=== PATIENT | female | born 1945 | race Caucasian/White ===

== ENCOUNTER 2017-05-06 09:03 | Outpatient (CLI) ==
[2016-01-03 16:42] VITALS: BMI 39.5
[2017-05-06 12:39] LABS: BASOPHILS % (AUTO) 0.5 % (0.0-3.0); EOSINOPHILS # (AUTO) 0.1 K/ul (0.0-0.7); EOSINOPHILS % (AUTO) 2.5 % (0.0-7.0); HEMATOCRIT 41.5 % (37.0-47.0); HEMOGLOBIN 13.8 g/dl (12.0-16.0); IMMATURE GRANULOCYTE % (AUTO) 0.5 % (0.0-5.0); LYMPHOCYTES # (AUTO) 1.6 K/uL (0.60-3.4); MEAN CORPUSCULAR HEMOGLOBIN 30.6 pg (27.0-31.0); MEAN CORPUSCULAR HGB CONC 33.3 (31.8-35.4); MONOCYTES # (AUTO) 0.4 K/uL (0.4-2.0); MONOCYTES % (AUTO) 9.2 (0-10); NEUTROPHILS # (AUTO) 1.9 K/ul (2.0-6.9); NEUTROPHILS % (AUTO) 47.3; PLATELET COUNT 294 10^3/uL (140-440); RED BLOOD COUNT 4.51 10^6/ul (4.20-5.40); WHITE BLOOD COUNT 4.03 K/ul (4.6-10.2)
[2017-05-06 12:53] LABS: BILIRUBIN,URINE Negative (NEGATIVE); KETONES,URINE Negative (NEGATIVE); LEUKOCYTE ESTERASE ,URINE 2+ (NEGATIVE); NITRITE,URINE Negative (NEGATIVE); PH,URINE 7.5 (5-9); PROTEIN,URINE Negative (NEGATIVE); URINE, BLOOD Negative (NEGATIVE)
[2017-05-06 12:55] LABS: ALBUMIN 4.2 g/dL (3.4-5.0); ALBUMIN/GLOBULIN RATIO 1.35; ANION GAP 14.9; BILIRUBIN,TOTAL 0.71 mg/dL (0.00-1.20); BUN/CREATININE RATIO 13.08; CALCIUM 10.7 mg/dL (8.2-10.2); CHOL/HDL RATIO 3.6 (4.5-5.5); CREATININE 1.07 mg/dL (0.60-1.30); POTASSIUM 3.9 mmol/L (3.5-5.10); TOTAL PROTEIN 7.3 g/dL (5.8-8.1)
[2017-05-06 12:55] LABS: ADD URINE MICROSCOPIC YES
[2017-05-06 13:05] LABS: BACTERIA,URINE TRACE (NOT PRESENT)
== END 2017-05-06 09:04 | disposition home or self-care (01) ==
LOC: LAB 09:03
PROVIDERS: ATTEND General Practice
DX: E78.5 Hyperlipidemia, unspecified (principal); I10 Essential (primary) hypertension; Z79.899 Other long term (current) drug therapy
CPT/HCPCS: 36415; 80053; 80061; 81001; 85025; 87086

== ENCOUNTER 2017-09-05 13:05 | Outpatient (CLI) ==
[2016-01-03 16:42] VITALS: BMI 39.5
[2017-09-05 13:41] LABS: BASOPHILS % (AUTO) 0.5 % (0.0-3.0); EOSINOPHILS # (AUTO) 0.1 K/ul (0.0-0.7); EOSINOPHILS % (AUTO) 2.6 % (0.0-7.0); HEMATOCRIT 43.6 % (37.0-47.0); HEMOGLOBIN 14.4 g/dl (12.0-16.0); IMMATURE GRANULOCYTE % (AUTO) 0.3 % (0.0-5.0); LYMPHOCYTES # (AUTO) 1.5 K/uL (0.60-3.4); LYMPHOCYTES % (AUTO) 39.2 (10.0-50.0); MEAN CORPUSCULAR HEMOGLOBIN 30.4 pg (27.0-31.0); MONOCYTES # (AUTO) 0.3 K/uL (0.4-2.0); MONOCYTES % (AUTO) 8.4 (0-10); NEUTROPHILS # (AUTO) 1.9 K/ul (2.0-6.9); PLATELET COUNT 331 10^3/uL (140-440); RED BLOOD COUNT 4.74 10^6/ul (4.20-5.40); WHITE BLOOD COUNT 3.83 K/ul (4.6-10.2)
[2017-09-05 14:01] LABS: ALBUMIN 4.1 g/dL (3.4-5.0); ALBUMIN/GLOBULIN RATIO 1.11; ANION GAP 14.9; CALCIUM 11.1 mg/dL (8.2-10.2); POTASSIUM 3.9 mmol/L (3.5-5.10); TOTAL PROTEIN 7.8 g/dL (5.8-8.1)
[2017-09-05 14:04] LABS: BILIRUBIN,URINE Negative (NEGATIVE); KETONES,URINE Negative (NEGATIVE); LEUKOCYTE ESTERASE ,URINE 3+ (NEGATIVE); NITRITE,URINE Negative (NEGATIVE); PH,URINE 7.5 (5-9); PROTEIN,URINE Negative (NEGATIVE); URINE, BLOOD Trace-intact (NEGATIVE)
[2017-09-05 14:09] LABS: ADD URINE MICROSCOPIC YES
[2017-09-05 14:22] LABS: BACTERIA,URINE 1+ (NOT PRESENT)
[2017-09-05 14:37] LABS: BILIRUBIN,TOTAL 0.68 mg/dL (0.00-1.20); BUN/CREATININE RATIO 13.15; CREATININE 1.14 mg/dL (0.60-1.30)
== END 2017-09-05 13:06 | disposition home or self-care (01) ==
LOC: LAB 13:05
PROVIDERS: ATTEND General Practice
DX: E78.5 Hyperlipidemia, unspecified (principal); I10 Essential (primary) hypertension; Z79.899 Other long term (current) drug therapy
CPT/HCPCS: 36415; 80053; 80061; 81001; 85025; 87086

== ENCOUNTER 2017-09-08 08:37 | Outpatient (CLI) ==
[2016-01-03 16:42] VITALS: BMI 39.5
== END 2017-09-08 08:38 | disposition home or self-care (01) ==
LOC: LAB 08:37
PROVIDERS: ATTEND General Practice
DX: E83.52 Hypercalcemia (principal)
CPT/HCPCS: 36415; 82310; 83970

== ENCOUNTER 2017-09-23 10:04 | Outpatient (CLI) ==
[2016-01-03 16:42] VITALS: BMI 39.5
--- NOTE | 2017-09-23 11:45 | DI ---
EXAM: Chest two views HISTORY: Cough COMPARISON: 07/03/2015 TECHNIQUE: Two views of the chest were performed FINDINGS: The lungs are clear. There is no pleural effusion or pneumothorax. The heart is normal i n size. The mediastinal contour is subsegmental atelectasis and/or scarring left mid lung.. There a re no acute abnormalities of the bones. IMPRESSION: No acute cardiopulmonary process.
== END 2017-09-23 10:05 | disposition home or self-care (01) ==
LOC: RAD 10:04
PROVIDERS: ATTEND General Practice
DX: Z12.31 Encounter for screening mammogram for malignant neoplasm of breast (principal); R05 Cough
CPT/HCPCS: 77067

== ENCOUNTER 2017-10-24 08:36 | Outpatient (CLI) ==
[2016-01-03 16:42] VITALS: BMI 39.5
== END 2017-10-24 08:37 | disposition home or self-care (01) ==
LOC: LAB 08:36
PROVIDERS: ATTEND Internal Medicine Endocrinology, Diabetes & Metabolism
DX: E21.0 Primary hyperparathyroidism (principal)
CPT/HCPCS: 81050

== ENCOUNTER 2018-04-03 12:07 | Outpatient (CLI) ==
[2016-01-03 16:42] VITALS: BMI 39.5
== END 2018-04-03 12:08 | disposition home or self-care (01) ==
LOC: RHC-LAB 12:07
PROVIDERS: ATTEND General Practice
DX: E78.5 Hyperlipidemia, unspecified (principal); I10 Essential (primary) hypertension; Z79.899 Other long term (current) drug therapy
CPT/HCPCS: 36415; 80053; 80061; 81001; 85025; 87086

== ENCOUNTER 2018-07-28 09:20 | Outpatient (CLI) ==
[2016-01-03 16:42] VITALS: BMI 39.5
== END 2018-07-28 09:21 | disposition home or self-care (01) ==
LOC: RHC-LAB 09:20
PROVIDERS: ATTEND General Practice
DX: E78.5 Hyperlipidemia, unspecified (principal); I10 Essential (primary) hypertension; Z79.899 Other long term (current) drug therapy
CPT/HCPCS: 36415; 80053; 80061; 81001; 85025; 87086

== ENCOUNTER 2019-01-11 07:54 | Outpatient (CLI) | payer OTHER ==
[2016-01-03 16:42] VITALS: BMI 39.5
== END 2019-01-11 07:55 | disposition home or self-care (01) ==
LOC: RHC-LAB 07:54
PROVIDERS: ATTEND General Practice
DX: E78.5 Hyperlipidemia, unspecified (principal); I10 Essential (primary) hypertension; Z79.899 Other long term (current) drug therapy
CPT/HCPCS: 36415; 80053; 80061; 81001; 85025; 87086

== ENCOUNTER 2019-05-15 08:28 | Outpatient (CLI) ==
[2016-01-03 16:42] VITALS: BMI 39.5
== END 2019-05-15 08:29 | disposition home or self-care (01) ==
LOC: RHC-LAB 08:28
PROVIDERS: ATTEND General Practice
DX: E78.5 Hyperlipidemia, unspecified (principal); I10 Essential (primary) hypertension; Z79.899 Other long term (current) drug therapy
CPT/HCPCS: 36415; 80053; 80061; 81001; 85025; 87086

== ENCOUNTER 2019-05-27 21:04 | Emergency (ER) | payer OTHER ==
[2019-05-27 21:14] VITALS: BP 160/98; TEMP 98.6
--- NOTE | 2019-05-27 21:20 | ED.PDOC ---
General ED Provider: Dr. KATHLEEN CHILD Chief Complaint: Knee Pain/Injury Stated Complaint: Patient is a 73 year old female who comes to the ER with complains of right knee pain that is chronic but got worse today when she twisted it. Unable to bear weight due to pain. Time Seen by Physician: 21:18 Mode of Arrival: Walk-In Information Source: Patient [facility] T[facility] Documentation Reviewed and Agree: Yes Does patient meet sepsis criteria?: No System Inflammatory Response Syndrome: Not Applicable Sepsis Protocol: For patient's 13 years and over: Temp is 96.8 and below OR 101 and greater Pulse >90 BPM Resp >20/minute Acutely Altered Mental Status Are patient's symptoms suggestive of a new infection, such as: -Pneumonia -Skin, Soft Tissue -Endocarditis -UTI -Bone, Joint Infection -Implantable Device -Acute Abdominal Infection -Wound Infection -Meningitis -Blood Stream Catheter Infection -Unknown Musculoskeletal Complaint Exam - Knee Pain Complaint/Exam Mechanism of Injury: Reports: Trauma (Twisting injury) Onset/Duration: 1 day Symptoms Are: Still present Onset of Pain: Reports: Immediate Initial Severity: Moderate Current Severity: Severe Location: Reports: Discrete (Medial aspect of the knee) Character: Reports: Aching, Throbbing Alleviating: Reports: Rest (only partially ), Position Aggravating: Reports: Movement, Weight bearing, Prolonged standing Associated Signs and Symptoms: Reports: Swelling (mild). Denies: Redness, Bruising, Fever, Weakness, Numbness, Tingling Able to Bear Weight: No (but has alot of pain ) Related History: Reports: Similar episode Septic Arthritis Risk Factors: Reports: None Gout Risk Factors: Reports: None Knee Findings: Present: Tenderness (Medial aspect of the right knee ) Chas Test Positive: No Dedrick Test Positive: No Limited Range of Motion: Present: Active, Passive, Flexion Knee Picture: 1 - tenderness to palpation Differential Diagnoses: Closed Fracture, Sprain, Strain Review of Systems - Review Of Systems Constitutional: Reports: No symptoms Eyes: Reports: No symptoms Ears, Nose, Mouth, Throat: Reports: No symptoms Respiratory: Reports: No symptoms Cardiac: Reports: No symptoms GI: Reports: No symptoms : Reports: No symptoms Musculoskeletal: Reports: Joint pain (right medial knee area.) Skin: Reports: No symptoms Neurological: Reports: No symptoms Endocrine: Reports: No symptoms Hematologic/Lymphatic: Reports: No symptoms All Other Systems: Reviewed and Negative Past Medical History - Past Medical History Endocrine: Reports: Hypothyroid (parathyroid tumor elevated calcium resolved), Dyslipidemia Cardiovascular: Reports: Hypertension Respiratory: Reports: None Hematological: Reports: None Gastrointestinal: Reports: None Genitourinary: Reports: None Neuro/Psych: Reports: None Musculoskeletal: Reports: None Cancer: Reports: Other (Nose Surgery to Remove Cancer) Last Menstrual Period: menopausal - Surgical History General Surgical History: Reports: Tubal ligation, Appendectomy, Cholecystectomy , Other (Parathyroid Surgery) - Family History Family History: Reports: Unknown - Social History Smoking Status: Never smoker Hx Substance Use: No Alcohol Screening: None - Immunizations Tetanus Shot up to Date: No Physical Exam - Physical Exam Appearance: Ill-appearing, Obese Pain Distress: Severe Eyes: SANDRO, EOMI, Conjunctiva clear ENT: Ears normal, Nose normal, Oropharynx normal Respiratory: Airway patent, Breath sounds clear, Breath sounds equal, Respirations nonlabored Cardiovascular: RRR, Pulses normal, No rub, No murmur Musculoskeletal: Limited ROM (at the knee ) Skin: Warm, Dry, Normal color Neurological: Sensation intact, Motor intact, Cranial nerves intact, Alert, Oriented Psychiatric: Anxious Interpretation - Radiology Interpretation Radiology Interpretation By: ED Physician Radiology Results: Negative Exam Interpreted: Other (right knee ) Critical Care Note - Critical Care Note Total Time (mins): 0 Course - Course Orders, Labs, Meds: Orders Category Date Time Status BENNETT [ED BENNETT WRAP] .ONCE EMERGENCY 05/27/19 21:34 Active Ketorolac Tromethamine [Toradol] MEDS 05/27/19 21:31 Discontinued 30 mg IM ONCE STA Oxycodone HCl [Oxycodone] MEDS 05/27/19 21:23 Discontinued 5 mg PO ONCE STA KNEE, RIGHT 4 VIEWS Stat RADS 05/27/19 21:21 Completed Medications Discontinued Medications Generic Name Dose Route Start Last Admin Trade Name Freq PRN Reason Stop Dose Admin Ketorolac Tromethamine 30 mg 05/27/19 21:31 05/27/19 21:38 Toradol IM 05/27/19 21:32 30 mg ONCE STA Administration Oxycodone HCl 5 mg 05/27/19 21:23 05/27/19 21:38 Oxycodone PO 05/27/19 21:24 5 mg ONCE STA Administration Vital Signs: Temp Pulse Resp BP Pulse Ox 05/27/19 21:05 98.6 F 78 22 160/98 H 96 Departure - Departure Time of Disposition: 21:59 Disposition: HOME SELF-CARE Discharge Problem: Knee pain Knee sprain Qualifiers: Encounter type: initial encounter Involved ligament of knee: medial collateral ligament Laterality: right Qualified Code(s): S83.411A - Sprain of medial collateral ligament of right knee, initial encounter Instructions: Knee Sprain (ED) Condition: Stable Pt referred to PMD for follow-up: Yes IPMP verified?: No Additional Instructions: Take medications as prescribed Follow up with PCP in 3 days Prescriptions: Hydrocodone Bit/Acetaminophen [Crivitz 5-325] 1 each PO Q6HR PRN #15 tablet PRN Reason: severe pain Allergies/Adverse Reactions: Allergies Penicillins Allergy (Severe, Verified 05/27/19 21:14) rash Home Medications: Ambulatory Orders Hydrocodone Bit/Acetaminophen [Crivitz 5-325] 1 each PO Q6HR PRN #15 tablet
[2019-05-27] MEDS ORDERED: NORCO 7.5-325 MG/15 ML PO STA (21:21)
[2019-05-27] MEDS ORDERED: TORADOL IVP STA (21:21)
[2019-05-27 21:23] VITALS: BMI 40.4
[2019-05-27] MEDS ORDERED: OXYCODONE PO STA (21:23)
[2019-05-27] MEDS ORDERED: TORADOL IM STA (21:31)
--- NOTE | 2019-05-28 05:59 | DI ---
EXAM: Four views right knee HISTORY: Right medial knee pain COMPARISON: None. FINDINGS/IMPRESSION: Alignment: Anatomic. Bones: No fracture or aggressive osseous lesion. Joint spaces: Mild tricompartmental osteoarthritis, most prominent medial compartment with joint spac e narrowing and marginal osteophytes. Medial meniscal chondrocalcinosis. Soft tissues: No focal swelling or joint effusion. Incidental multiple large/dilated varices in the m edial proximal calf.
== END 2019-05-27 22:10 | disposition home or self-care (01) ==
LOC: ED 21:04
DX: S83.411A Sprain of medial collateral ligament of right knee, initial encounter (principal)
CPT/HCPCS: 99282

== ENCOUNTER 2024-05-23 08:21 | Observation (INO) ==
--- NOTE | 2024-05-23 08:30 | ED.PDOC ---
General ED Provider: Dr. JASWANT WATTS MD Chief Complaint: Nausea/Vomiting Stated Complaint: Patient history of hypertension, chronic kidney disease, atrial fibrillation, Eliquis presently taking Xarelto, complains acute onset of emesis last night. Vessels associated with dry heaves this morning has associated left lower abdominal pain and chills. Denies fever, chest pain, dyspnea, diaphoresis, and diarrhea. Time Seen by Provider: 05/23/24 08:28 Mode of Arrival: Ambulance Information Source: Patient Exam Limitations: No limitations Primary Care Provider: PILAR MORAN APRN,[facility] Nursing and Triage Documentation Reviewed and Agree: Yes What is Opioid Naive?: *Opioid Naive implies the patient is not already taking opioids or not chronically receiving opioids on a daily basis. *PRN dosing is not "usually" associated with tolerance. *Patients are at higher risk of over-sedation and aspiration. What is Opioid Tolerant?: *Opioid Tolerance implies less than the expected response to an opioid. *Acquired tolerance is defined by the patient taking 60mg of oral morphine daily (or equianalgesic dose of another opioid) for 1 week or more. *Often associated with chronic pain. *May take more than usual dose to achieve desired pain control. Review of Systems Review Of Systems Constitutional: Reports Chills Eyes: Reports No symptoms Ears, Nose, Mouth, Throat: Reports No symptoms Respiratory: Reports No symptoms Cardiac: Reports No symptoms GI: Reports Abdominal pain, Nausea, Poor appetite, Vomiting and Other (Persistent dry heaves) : Reports No symptoms Musculoskeletal: Reports No symptoms Skin: Reports No symptoms Neurological: Reports No symptoms Endocrine: Reports No symptoms Hematologic/Lymphatic: Reports No symptoms All Other Systems: Reviewed and Negative [facility] Medical History Knee cartilage, torn, right S83.206A - Unspecified tear of unspecified meniscus, current injury, right knee, initial encounter (ICD-10) Cataract H26.9 - Unspecified cataract (ICD-10) Hypertension I10 - Essential (primary) hypertension (ICD-10) Hyperlipidemia elavated calcium E78.5 - Hyperlipidemia, unspecified (ICD-10) Basal cell carcinoma of nasal crease C44.319 - Basal cell carcinoma of skin of other parts of face (ICD-10) Family History SON Melanoma FATHER No problems noted. Mother , mother passed when pt was 17 days old No problems noted. Social History Smoking and tobacco status: Never smoker Passive smoking exposure: No Second hand smoke exposure: No Alcohol intake: never Counseling given: No Substance use type: does not use Counseling given: No Milvia/voodoo: RELIGION Special milvia needs: No Agree to transfusion: Yes Adopted: No Caregiver/support person: Yes Foster care: No Household members: none Housing: house Marital status: W / Lives independently: No Number of children: 3 Number of grandchildren: 5 Highest education level completed: GED or equivalent service: No residential: No Current occupational status: retired Current occupational exposures/hazards: No 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 Pets and animals: Yes (2 dogs and a cat) Leisure activites: music, games and reading History of recent travel: No Sexually active: No Do you think of yourself as: straight/heterosexual Current gender identity: female Seatbelt use: always Helmet use: No Drives intoxicated or 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 mounted: No Current diet type/program: regular Well-balanced diet: daily Caffeine: No Eating out: 1-3 times/week Reads food labels: usually or always During the past year weight has: remained stable Water heater temperature set < 120 degrees: Yes Working smoke detector in home: Yes Fire extinguisher in home: Yes Carbon monoxide detector in home: Yes Firearms in home: No What type of physical activity do you participate in?: walking and other Physical activity functional status: independent ambulation How many days of moderate to strenuous exercise, like a brisk walk, did you do in the last 7 days: 2 Surgical History History of radiofrequency ablation (RFA) procedure for cardiac arrhythmia Z98.890 - Other specified postprocedural states (ICD-10) H/O cataract removal with insertion of prosthetic lens Z98.49 - Cataract extraction status, unspecified eye (ICD-10) Z96.1 - Presence of intraocular lens (ICD-10) History of right knee surgery Z98.890 - Other specified postprocedural states (ICD-10) History of ear, nose, and throat (ENT) surgery tumor parathyroid Z98.890 - Other specified postprocedural states (ICD-10) History of tubal ligation Z98.51 - Tubal ligation status (ICD-10) Status post cholecystectomy Z90.49 - Acquired absence of other specified parts of digestive tract (ICD- 10) Female Reproductive History Menstrual Age of Menarche: 13 Hx Hysterectomy: No Hx Tubal Ligation: Yes (1980s???) Physical Exam Physical Exam Appearance: Reports Ill-appearing Ill-appearing: Mild Pain Distress: None Eyes: Reports SANDRO, EOMI and Conjunctiva clear ENT: Reports Ears normal, Nose normal and Oropharynx normal Neck: Nonsupple Respiratory: Reports Airway patent, Breath sounds clear and Breath sounds equal Cardiovascular: Reports RRR, Pulses normal, No rub, No murmur and Irregular rhythm GI/: Reports Soft, Nontender, No masses, Bowel sounds normal and No Organomegaly Musculoskeletal: Reports Normal strength, ROM intact, No edema and No calf tenderness Skin: Reports Warm, Dry and Normal color Neurological: Reports Sensation intact, Motor intact, Reflexes intact, Cranial nerves intact, Alert and Oriented Psychiatric: Reports Affect appropriate Critical Care Note Critical Care Note Total Critical Care Time (mins): 0 Course Course 05/23/24 09:07 05/23/24 09:07 Orders, Labs, Meds: Lab Review 05/23/24 05/23/24 09:07 09:30 WBC 12.19 H RBC 4.03 L Hgb 12.2 Hct 39.9 MCV 99.0 MCH 30.3 MCHC 30.6 L RDW Coeff of Lilli 14.1 Plt Count 272 Immature Gran % (Auto) 0.3 Neut % (Auto) 85.0 H Lymph % (Auto) 5.2 L [place] % (Auto) 9.2 Eos % (Auto) 0.2 Baso % (Auto) 0.1 Neut # (Auto) 10.4 H Lymph # (Auto) 0.6 [place] # (Auto) 1.1 Eos # (Auto) 0.0 Baso # (Auto) 0.0 Immature Gran # (Auto) 0.0 Sodium 138.1 Potassium 4.10 Chloride 107.0 Carbon Dioxide 26.3 Anion Gap 8.90 BUN 14.5 Creatinine 0.99 Estimated GFR (MDRD) 54.00 BUN/Creatinine Ratio 14.64 Glucose 136.6 H Calcium 10.02 Magnesium 1.83 Total Bilirubin 0.61 AST 30.5 ALT 23.5 Alkaline Phosphatase 26.4 L Troponin I < 0.012 Total Protein 6.55 Albumin 4.02 Globulin 2.53 Albumin/Globulin Ratio 1.58 Lipase 37.0 Urine Color Zelda Urine Clarity Clear Urine pH 6.0 Ur Specific [place] 1.020 Urine Protein Negative Urine Glucose (UA) Negative Urine Ketones Negative Urine Blood Negative Urine Nitrite Negative Urine Bilirubin Negative Urine Urobilinogen 1.0 H Ur Leukocyte Esterase 1+ H Urine Microscopic RBC 0-2 Urine Microscopic WBC 5-10 Ur Squamous Epith Cells 0-2 Ur Renal Epithelial Cell 2-5 Calcium Oxalate Crystal 1+ Urine Bacteria Trace Orders Category Date Time Status EKG-(ED ONLY) Stat CARDIO 05/23/24 10:20 Completed NPO REMINDER: IMAGING ONCE CARE 05/23/24 08:58 Completed CBC W/ AUTO DIFF Stat LAB 05/23/24 09:07 Completed CMP [COMPREHENSIVE METABOLIC PANEL] Stat LAB 05/23/24 09:07 Completed COVID [SARS COV-2 RNA RAPID FRANKIE] Stat LAB 05/23/24 10:45 Ordered LIPASE Stat LAB 05/23/24 09:07 Completed MAGNESIUM Stat LAB 05/23/24 09:07 Completed TROPONIN I Stat LAB 05/23/24 09:07 Completed URINALYSIS C & S IF INDICATED Stat LAB 05/23/24 09:30 Completed URINE CULTURE Stat LAB 05/23/24 09:30 Received Ondansetron HCl/Pf [Zofran 4 mg/2 ml] Meds 05/23/24 08:56 Discontinued 4 mg IVP ONCE STA Pantoprazole Sodium [Protonix] Meds 05/23/24 08:56 Discontinued 40 mg IVP ONCE ONE Sodium Chloride 0.9% [Sodium Chloride] 1,000 ml Meds 05/23/24 08:56 Active IV 250 mls/hr CHEST, 1V AP ONLY Stat RADS 05/23/24 10:[address] ABDOMEN/PELVIS W CONTRAST Stat RADS 05/23/24 08:58 Completed Medications Generic Name Dose Route Start Last Admin Trade Name Freq PRN Reason Stop Dose Admin Sodium Chloride 1,000 mls @ 250 mls/hr 05/23/24 08:56 05/23/24 09:21 Sodium Chloride IV 05/23/24 12:55 250 mls/hr .Q4H ONE Administration Discontinued Medications Generic Name Dose Route Start Last Admin Trade Name Valentín PRN Reason Stop Dose Admin Ondansetron HCl 4 mg 05/23/24 08:56 05/23/24 09:22 Ondansetron Hcl/Pf 4 Mg/2 Ml Sdv IVP 05/23/24 08:57 4 mg ONCE STA Administration Pantoprazole Sodium 40 mg 05/23/24 08:56 05/23/24 09:22 Pantoprazole Sodium 40 Mg Vial IVP 05/23/24 08:57 40 mg ONCE ONE Administration Vital Signs: Temp Pulse Resp BP Pulse Ox 05/23/24 08:27 97.9 F 73 18 151/68 H 93 L Discharge Plan Discharge Patient Disposition: PLACED OBSERVATION Discharge Problem: Intractable nausea and vomiting Did you review [place] PRESS READER for ALL controlled substances?: Not Applicable ED Provider: JASWANT WATTS Condition: Stable Physician Progress Note: History obtained from the patient is a history of atrial fibrillation, chronic kidney disease, hypertension, complains of acute onset of frequent episodes of emesis since last 10 episodes, persistent dry heaves, associate with left lower abdominal pain. Patient also complains of having chills denies fever, dyspnea, diaphoresis, palpitations. Patient denies diarrhea. Patient administered IV fluids 1 L at 250 mL/hour, Zofran 40 mg, Protonix [address] of the abdomen pelvis with IV contrast interpretation per radiologist is consistent with no acute inflammatory process in the abdomen or pelvis there is no evidence of mass or pancreatitis no ductal dilatation. The spleen and adrenals unremarkable kidneys ureters no renal mass no calculus or hydronephrosis GI tract there is no bowel dilatation or bowel wall thickening there is a small hiatal hernia there is constipation. There is no ascites there is no free air. Bladder is normal. 1033-EKG interpretation by myself consistent normal sinus rhythm left axis deviation there is nonspecific ST wave change inferiorly. There is no ectopy there is a first-degree block noted. Differential diagnosis: 1) intractable nausea vomiting 2) nonspecific abdominal pain Discussed with the hospitalist Jamel Keyes at 1050 for observation
[2024-05-23 09:11] LABS: BASOPHILS % (AUTO) 0.1 % (0.0-3.0); EOSINOPHILS % (AUTO) 0.2 % (0.0-7.0); HEMATOCRIT 39.9 % (37.0-47.0); HEMOGLOBIN 12.2 g/dl (12.0-16.0); IMMATURE GRANULOCYTE % (AUTO) 0.3 % (0.0-5.0); LYMPHOCYTES # (AUTO) 0.6 K/uL (0.60-3.4); LYMPHOCYTES % (AUTO) 5.2 (10.0-50.0); MEAN CORPUSCULAR HEMOGLOBIN 30.3 pg (27.0-31.0); MEAN CORPUSCULAR HGB CONC 30.6 (31.8-35.4); MONOCYTES # (AUTO) 1.1 K/uL (0.4-2.0); MONOCYTES % (AUTO) 9.2 (0-10); NEUTROPHILS # (AUTO) 10.4 K/ul (2.0-6.9); PLATELET COUNT 272 10^3/uL (140-440); RDW COEFFICIENT OF VARIATION 14.1 % (11.6-14.8); RED BLOOD COUNT 4.03 10^6/ul (4.20-5.40); WHITE BLOOD COUNT 12.19 K/ul (4.6-10.2)
[2024-05-23] MEDS: SODIUM CHLORIDE 1,000 ML IV ONE (09:21)
[2024-05-23] MEDS: PROTONIX IVP ONE (09:22)
[2024-05-23] MEDS: ZOFRAN 4 MG/2 ML IVP STA (09:22)
[2024-05-23 09:25] LABS: ALANINE AMINOTRANSFERASE 23.5 U/L (0-35); ALBUMIN 4.02 g/dL (3.5-5.0); ALKALINE PHOSPHATASE 26.4 U/L (53-141); ASPARTATE AMINO TRANSFERASE 30.5 U/L (14-36); BILIRUBIN,TOTAL 0.61 mg/dL (0.2-1.3); BLOOD UREA NITROGEN 14.5 mg/dL (7-17); CALCIUM 10.02 mg/dL (8.4-10.2); CARBON DIOXIDE 26.3 mmol/L (22-30.0); CREATININE 0.99 mg/dL (0.60-1.30); GLUCOSE 136.6 mg/dL (74-106); MAGNESIUM 1.83 mg/dL (1.6-2.3); SODIUM 138.1 mmol/L (134.5-145); TOTAL PROTEIN 6.55 g/dL (6.3-8.2)
[2024-05-23 09:37] LABS: BILIRUBIN,URINE Negative (NEGATIVE); CLARITY,URINE Clear (CLEAR); COLOR,URINE Amber (YELLOW); GLUCOSE, URINE (UA) Negative (NEGATIVE); KETONES,URINE Negative (NEGATIVE); LEUKOCYTE ESTERASE ,URINE 1+ (NEGATIVE); NITRITE,URINE Negative (NEGATIVE); PROTEIN,URINE Negative (NEGATIVE); URINE, BLOOD Negative (NEGATIVE)
[2024-05-23 09:39] LABS: TROPONIN I < 0.012 ng/ml (0.0000-0.120)
[2024-05-23 10:00] LABS: BACTERIA,URINE TRACE (NOT PRESENT); CALCIUM OXALATE CRYSTALS,UR 1+ (NOT PRESENT); SQUAMOUS EPITHELIAL CELL,UR 0-2 (0-5); URINE RBC, MICROSCOPIC 0-2 (0-2)
--- NOTE | 2024-05-23 10:18 | CT ---
EXAM: CT ABDOMEN AND PELVIS WITH CONTRAST HISTORY: Abdominal pain and vomiting TECHNIQUE: CT acquisition of the abdomen and pelvis from the lower thorax through the pelvis followin g IV contrast administration. 2-D coronal and sagittal reformatted images were obtained from the axi al source images. CT Dose Reduction Techniques Performed: Yes. COMPARISON: None. FINDINGS: Lower Thorax: Within normal limits. Liver: No mass. Normal morphology. Biliary: There has been cholecystectomy. Pancreas: No mass or evidence of pancreatitis. No duct dilation. Spleen: No mass. No splenomegaly. Adrenals: No mass. Kidneys/Ureters: No renal mass. No calculus or hydronephrosis. GI Tract: No bowel dilation. No bowel wall thickening. There is a small hiatal hernia. There is con stipation. Peritoneal Cavity: No ascites. No free air. Retroperitoneum: No mass or fluid collection. Lymph Nodes: No lymphadenopathy. Vasculature: No aortic aneurysm. Pelvis: Normal pelvic structures. Bladder is normal. Bones/Soft Tissues: Previous kyphoplasty at L4. Visualized abdominal wall soft tissues are unremarkab le. IMPRESSION: 1. No acute inflammatory process in the abdomen or pelvis. All CT scans are performed using dose optimization techniques as appropriate to the performed exam an d include at least one of the following: Automated exposure control, adjustment of the mA and/or kV according t o size, and the use of iterative reconstruction technique.
--- NOTE | 2024-05-23 10:42 | DI ---
EXAM: CHEST ONE VIEW, FRONTAL VIEW ONLY. HISTORY: Cough. COMPARISON: 05/24/2022. FINDINGS: The heart size is mildly enlarged. There is no pulmonary vascular congestion. Stable micheal ear scarring left lung base. Otherwise, the lungs are clear. No pleural effusion or pneumothorax is seen. No acute osseous abnormality is identified. Since the prior study, there has been no signifi cant interval change. IMPRESSION: No acute cardiopulmonary process.
[2024-05-23 11:06] LABS: SARS COV-2 RNA RAPID NAAT NEGATIVE (NEGATIVE)
[2024-05-23] MEDS ORDERED: TYLENOL PO PRN (11:42)
[2024-05-23] MEDS ORDERED: ZOFRAN 4 MG/2 ML IVP PRN (11:42)
[2024-05-23 11:50] VITALS: BMI 41.8
[2024-05-23 12:40] LABS: MOLECULAR FLU A NEGATIVE BY NAAT (NEGATIVE); MOLECULAR FLU B NEGATIVE BY NAAT (NEGATIVE)
[2024-05-23] MEDS: REGLAN IVP PRN (12:46)
[2024-05-23] MEDS: GLYCERIN SUPPOSITORY RC ONE (12:55)
[2024-05-23] MEDS: SODIUM CHLORIDE 1,000 ML IV SCH (13:31)
--- NOTE | 2024-05-23 14:49 | PCM ---
Date of Service Date Seen by Provider: 05/23/24 Admit Day/Time Admission Date: 05/23/24 Reason for Admission Chief Complaint: INTRACTABLE NAUSEA, VOMITING, ABD PAIN Hospital Provider Hospital [facility] Primary Care Physician Primary Care Physician: PILAR MORAN APRN,[facility] History of Present Illness History of Present Illness: 78 yo female presented to the ER with complaints of abdominal pain, nausea, and vomiting that started yesterday and has persisted. States she has not had a BM for 4 days. No sick contacts. Denies fever that she knows of, no bloody emesis or stool, or other symptoms. Mild leukocytosis, CT abd pelv negative for acute findings other than constipation. Admitted to med/surg observation Case Discussed With Case Discussed With: Patient's case was discussed with the ER Physicians, Dr. Paul. [facility] Medical History Knee cartilage, torn, right S83.206A - Unspecified tear of unspecified meniscus, current injury, right knee, initial encounter (ICD-10) Cataract H26.9 - Unspecified cataract (ICD-10) Hypertension I10 - Essential (primary) hypertension (ICD-10) Hyperlipidemia elavated calcium E78.5 - Hyperlipidemia, unspecified (ICD-10) Basal cell carcinoma of nasal crease C44.319 - Basal cell carcinoma of skin of other parts of face (ICD-10) Surgical History History of radiofrequency ablation (RFA) procedure for cardiac arrhythmia Z98.890 - Other specified postprocedural states (ICD-10) H/O cataract removal with insertion of prosthetic lens Z98.49 - Cataract extraction status, unspecified eye (ICD-10) Z96.1 - Presence of intraocular lens (ICD-10) History of right knee surgery Z98.890 - Other specified postprocedural states (ICD-10) History of ear, nose, and throat (ENT) surgery tumor parathyroid Z98.890 - Other specified postprocedural states (ICD-10) History of tubal ligation Z98.51 - Tubal ligation status (ICD-10) Status post cholecystectomy Z90.49 - Acquired absence of other specified parts of digestive tract (ICD- 10) Family History SON Melanoma FATHER No problems noted. Mother , mother passed when pt was 17 days old No problems noted. 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 Special milvia needs: No Agree to transfusion: Yes Adopted: No Caregiver/support person: Yes Foster care: No Household members: none Housing: house Marital status: W / Lives independently: No Number of children: 3 Number of grandchildren: 5 Highest education level completed: GED or equivalent service: No senior living: No Current occupational status: retired Current occupational exposures/hazards: No 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 Pets and animals: Yes (2 dogs and a cat) Leisure activites: music, games and reading History of recent travel: No Sexually active: No Do you think of yourself as: straight/heterosexual Current gender identity: female Seatbelt use: always Helmet use: No Drives intoxicated or rides with intoxicated petrol tanker driver: No Current diet type/program: regular Well-balanced diet: daily Caffeine: No Eating out: 1-3 times/week Reads food labels: usually or always During the past year weight has: remained stable Water heater temperature set < 120 degrees: Yes Working smoke detector in home: Yes Fire extinguisher in home: Yes Carbon monoxide detector in home: Yes Firearms in home: No What type of physical activity do you participate in?: walking and other Physical activity functional status: independent ambulation How many days of moderate to strenuous exercise, like a brisk walk, did you do in the last 7 days: 2 Allergies Allergies Allergy/AdvReac Type Severity Reaction Status Date / Time Penicillins Allergy Severe rash Verified 05/23/24 08:35 Current Medications Home Medications amiodarone 200 mg tablet 200 mg PO QDAY #90 tabs 01/17/24 [Rx Confirmed 05/23/24 Last Taken Unknown] cholecalciferol (vitamin D3) 1,250 mcg (50,000 unit) capsule 1,250 mcg PO QWEEK #5 caps 01/17/24 [Rx Confirmed 05/23/24 Last Taken Unknown] denosumab 60 mg/mL subcutaneous syringe (Prolia) 60 mg subcut [id number] #1 mL 01/17/24 [Rx Confirmed 05/23/24 Last Taken Unknown] rivaroxaban 20 mg tablet (Xarelto) See Rx Instructions .Route .COMPLEX #90 tabs 01/17/24 [Rx Confirmed 05/23/24 Last Taken Unknown] diltiazem HCl 120 mg capsule,extended release 24 hr 120 mg PO QDAY #90 caps 01/25/24 [Rx Confirmed 05/23/24 Last Taken Unknown] gabapentin 300 mg capsule 300 mg PO TID 30 days #90 caps 02/23/24 [Rx Confirmed 05/23/24 Last Taken Unknown] hydrocodone 5 mg-acetaminophen 325 mg tablet 1 tab PO Q8H PRN pain #90 tabs 02/29/24 [Rx Confirmed 05/23/24 Last Taken Unknown] fluticasone propionate 50 mcg/actuation nasal spray,suspension See Rx Instructions .Route .COMPLEX #16 grams 04/03/24 [Rx Confirmed 05/23/24 Last Taken Unknown] furosemide 20 mg tablet See Rx Instructions .Route .COMPLEX #90 tabs 04/03/24 [Rx Confirmed 05/23/24 Last Taken Unknown] losartan 100 mg tablet See Rx Instructions .Route .COMPLEX #90 tabs 04/03/24 [Rx Confirmed 05/23/24 Last Taken Unknown] pravastatin 40 mg tablet See Rx Instructions .Route .COMPLEX #90 tabs 04/03/24 [Rx Confirmed 05/23/24 Last Taken Unknown] tizanidine 4 mg tablet 4 mg PO BID PRN muscle spasticity #180 tabs 04/17/24 [Rx Confirmed 05/23/24 Last Taken Unknown] levocetirizine 5 mg tablet 5 mg PO QDAY for allergies #90 tabs 04/22/24 [Rx Confirmed 05/23/24 Last Taken Unknown] pantoprazole 40 mg tablet,delayed release 40 mg PO 2XD 05/23/24 [History Confirmed 05/23/24 Last Taken Unknown] Home Acetaminophen (Acetaminophen 325 Mg Tablet) 650 mg PO Q4H PRN PRN Reason: Mild Pain Sodium Chloride (Sodium Chloride) 1,000 mls @ 75 mls/hr IV .[id number] GALO Last Admin: 05/23/24 13:31 Dose: 75 mls/hr Metoclopramide HCl (Metoclopramide Hcl 10 Mg/2 Ml) 5 mg IVP Q6H PRN PRN Reason: Nausea / Vomiting Last Admin: 05/23/24 12:46 Dose: 5 mg Ondansetron HCl (Ondansetron Hcl/Pf 4 Mg/2 Ml Sdv) 4 mg IVP Q6H PRN PRN Reason: Nausea / Vomiting Discontinued Medications Glycerin (Glycerin 1 Each Supp.Rect) 1 each RC ONCE ONE Stop: 05/23/24 12:49 Last Admin: 05/23/24 12:55 Dose: 1 each Sodium Chloride (Sodium Chloride) 1,000 mls @ 250 mls/hr IV .Q4H ONE Stop: 05/23/24 12:55 Last Infusion: 05/23/24 13:46 Dose: Infused Ondansetron HCl (Ondansetron Hcl/Pf 4 Mg/2 Ml Sdv) 4 mg IVP ONCE STA Stop: 05/23/24 08:57 Last Admin: 05/23/24 09:22 Dose: 4 mg Pantoprazole Sodium (Pantoprazole Sodium 40 Mg Vial) 40 mg IVP ONCE ONE Stop: 05/23/24 08:57 Last Admin: 05/23/24 09:22 Dose: 40 mg Opioid Naive vs. Tolerant Does Patient Take Opioids?: No Is Patient Opioid Naive?: Yes What is Opioid Naive?: *Opioid Naive implies the patient is not already taking opioids or not chronically receiving opioids on a daily basis. *PRN dosing is not "usually" associated with tolerance. *Patients are at higher risk of over-sedation and aspiration. Is Patient Opioid Tolerant?: No What is Opioid Tolerant?: *Opioid Tolerance implies less than the expected response to an opioid. *Acquired tolerance is defined by the patient taking 60mg of oral morphine daily (or equianalgesic dose of another opioid) for 1 week or more. *Often associated with chronic pain. *May take more than usual dose to achieve desired pain control. Review of Systems Constitutional: Reports No symptoms Head: Reports Normocephalic Eyes: Reports No symptoms Ears: Reports No symptoms Nose: Reports No symptoms Mouth: Reports No symptoms Throat: Reports No symptoms Cardiovascular: Reports No symptoms Respiratory: Reports No symptoms Gastrointestinal: Reports Nausea, Vomiting, Constipation and Abdominal pain Genitourinary: Reports No Symptoms Musculoskeletal: Reports No symptoms Endocrine: Reports No symptoms Hematology: Reports No symptoms Immunology: Reports No symptoms Neurological: Reports No symptoms Psychiatric: Reports No symptoms Physical examination Most Recent Vital Signs: Most Recent Vital Signs Temperature 98.3 F 05/23/24 11:43 Temperature Source Temporal Artery Scan 05/23/24 11:43 Temperature Source Oral 05/23/24 08:27 Pulse Rate 68 05/23/24 11:43 Respiratory Rate 16 05/23/24 11:57 Blood Pressure 151/68 H 05/23/24 08:27 Blood Pressure Left Arm 151/58 05/23/24 11:43 Blood Pressure Position Supine 05/23/24 11:43 O2 Sat by Pulse Oximetry 93 L 05/23/24 11:43 Oxygen Delivery Method Nasal Cannula 05/23/24 14:00 Oxygen Flow Rate 2 05/23/24 13:53 Height 5 ft 7 in 05/23/24 11:43 Weight 121 kg 05/23/24 11:43 Telemetry Type Remote Telemetry 05/23/24 13:00 Telemetry Monitoring Continues 05/23/24 13:00 Telemetry Heart Rate 72 05/23/24 13:00 Telemetry SPO2 87 L 05/23/24 13:00 EKG HI Interval 0.25 H 05/23/24 13:00 EKG QRS Interval 0.09 05/23/24 13:00 Telemetry Strip Reading SR 05/23/24 13:00 Appearance: Positive No Apparent Distress and Alert and Oriented x3 Skin: Positive Warm HEENT: Positive Normocephalic and PERRLA Neck: Positive Supple and Midline Trachea Chest/Lungs: Positive Symmetrical With Equal Breath Sounds, Clear to Auscultation Bilaterally and Good Air Movement all 4 Lung [place]inkle Heart: Positive RRR and Pulses Normal GI/: Positive Soft, No Organomegaly, Tender (bilateral lower quadrants), Bowel Sounds Hypoactive and Other (mildly distended) Musculoskeletal: Positive Not Examined Extremities: Positive Edema (+2 pitting edema), Stable Joints Without Laxity and Good ROM in All Joints Neurological: Positive Sensation Intact, Motor intact, Alert, Oriented and Muscle Strength 5/5 in Upper and Lower Extremities Bilaterally Labs This Visit Labs This Visit: Labs This Visit 05/23/24 05/23/24 05/23/24 09:07 09:30 10:40 WBC 12.19 H RBC 4.03 L Hgb 12.2 Hct 39.9 MCV 99.0 MCH 30.3 MCHC 30.6 L RDW Coeff of Lilli 14.1 Plt Count 272 Immature Gran % (Auto) 0.3 Neut % (Auto) 85.0 H Lymph % (Auto) 5.2 L [place] % (Auto) 9.2 Eos % (Auto) 0.2 Baso % (Auto) 0.1 Neut # (Auto) 10.4 H Lymph # (Auto) 0.6 [place] # (Auto) 1.1 Eos # (Auto) 0.0 Baso # (Auto) 0.0 Immature Gran # (Auto) 0.0 Sodium 138.1 Potassium 4.10 Chloride 107.0 Carbon Dioxide 26.3 Anion Gap 8.90 BUN 14.5 Creatinine 0.99 Estimated GFR (MDRD) 54.00 BUN/Creatinine Ratio 14.64 Glucose 136.6 H Calcium 10.02 Magnesium 1.83 Total Bilirubin 0.61 AST 30.5 ALT 23.5 Alkaline Phosphatase 26.4 L Troponin I < 0.012 Total Protein 6.55 Albumin 4.02 Globulin 2.53 Albumin/Globulin Ratio 1.58 Lipase 37.0 Urine Color Zelda Urine Clarity Clear Urine pH 6.0 Ur Specific [place] 1.020 Urine Protein Negative Urine Glucose (UA) Negative Urine Ketones Negative Urine Blood Negative Urine Nitrite Negative Urine Bilirubin Negative Urine Urobilinogen 1.0 H Ur Leukocyte Esterase 1+ H Urine Microscopic RBC 0-2 Urine Microscopic WBC 5-10 Ur Squamous Epith Cells 0-2 Ur Renal Epithelial Cell 2-5 Calcium Oxalate Crystal 1+ Urine Bacteria Trace Influ A Molecular Assay Influ B Molecular Assay SARS CoV-2 RNA Rapid FRANKIE Negative 05/23/24 12:16 WBC RBC Hgb Hct MCV MCH MCHC RDW Coeff of Lilli Plt Count Immature Gran % (Auto) Neut % (Auto) Lymph % (Auto) [place] % (Auto) Eos % (Auto) Baso % (Auto) Neut # (Auto) Lymph # (Auto) [place] # (Auto) Eos # (Auto) Baso # (Auto) Immature Gran # (Auto) Sodium Potassium Chloride Carbon Dioxide Anion Gap BUN Creatinine Estimated GFR (MDRD) BUN/Creatinine Ratio Glucose Calcium Magnesium Total Bilirubin AST ALT Alkaline Phosphatase Troponin I Total Protein Albumin Globulin Albumin/Globulin Ratio Lipase Urine Color Urine Clarity Urine pH Ur Specific [place] Urine Protein Urine Glucose (UA) Urine Ketones Urine Blood Urine Nitrite Urine Bilirubin Urine Urobilinogen Ur Leukocyte Esterase Urine Microscopic RBC Urine Microscopic WBC Ur Squamous Epith Cells Ur Renal Epithelial Cell Calcium Oxalate Crystal Urine Bacteria Influ A Molecular Assay Negative by naat Influ B Molecular Assay Negative by naat SARS CoV-2 RNA Rapid FRANKIE Imaging Imaging: EXAM: CT ABDOMEN AND PELVIS WITH CONTRAST FINDINGS: Lower Thorax: Within normal limits. Liver: No mass. Normal morphology. Biliary: There has been cholecystectomy. Pancreas: No mass or evidence of pancreatitis. No duct dilation. Spleen: No mass. No splenomegaly. Adrenals: No mass. Kidneys/Ureters: No renal mass. No calculus or hydronephrosis. GI Tract: No bowel dilation. No bowel wall thickening. There is a small hiatal hernia. There is constipation. Peritoneal Cavity: No ascites. No free air. Retroperitoneum: No mass or fluid collection. Lymph Nodes: No lymphadenopathy. Vasculature: No aortic aneurysm. Pelvis: Normal pelvic structures. Bladder is normal. Bones/Soft Tissues: Previous kyphoplasty at L4. Visualized abdominal wall soft tissues are unremarkable. IMPRESSION: 1. No acute inflammatory process in the abdomen or pelvis. EXAM: CHEST ONE VIEW, FRONTAL VIEW ONLY. FINDINGS: The heart size is mildly enlarged. There is no pulmonary vascular congestion. Stable linear scarring left lung base. Otherwise, the lungs are clear. No pleural effusion or pneumothorax is seen. No acute osseous abnormality is identified. Since the prior study, there has been no significant interval change. IMPRESSION: No acute cardiopulmonary process. Review Statement Review Statement: I have independently reviewed and interpreted the labs/EKGs/imaging that were ordered by the ER provider. I have reviewed all outside records that are available currently in our EMR including imaging/notes/labs from previous visits. Plan Plan: 1. Intractable N/V secondary to constipation - zofran and reglan Q6H prn, suppository for constipation relief, will trial other methods if needed, NPO - advance diet as tolerated 2. Leukocytosis - mild, likely due to vomiting, no s/sx of infection, xray and UA negative 3. Afib - chronic, stable, continue home medications 4. Hypertension - chronic, continue home medications 5. Hyperlipidemia - chronic, continue home medications DVT Prophylaxis: Xarelto Time Spent: Greater than 80 minutes spent with patient, 50% of the time spent with this patient was devoted to counseling and coordination of care. [facility] Plannin minutes spent discussing advance care planning. Disposition: Admit to: Med/Surg Observation DNR Discussed Plan of Care with Dr. Prince Sanders. Medications Medication Orders: Medications Ordered Category Date Time Status Acetaminophen [Tylenol] Meds 05/23/24 11:42 Active 650 mg PO Q4H PRN Metoclopramide HCl [Reglan] Meds 05/23/24 11:42 Active 5 mg IVP Q6H PRN Ondansetron HCl/Pf [Zofran 4 mg/2 ml] Meds 05/23/24 11:42 Active 4 mg IVP Q6H PRN Sodium Chloride 0.9% [Sodium Chloride] 1,000 ml Meds 05/23/24 12:00 Active IV 75 mls/hr
[2024-05-23] MEDS ORDERED: ZANAFLEX PO PRN (15:17)
[2024-05-23] MEDS ORDERED: NORCO 5-325 PO PRN (15:17)
[2024-05-23] MEDS ORDERED: NON-FORMULARY MEDICATION (Levocetirizine 5 mg tablet) PO SCH (15:30)
[2024-05-23] MEDS ORDERED: LASIX TAB PO SCH (15:30)
[2024-05-23] MEDS ORDERED: PRAVACHOL PO SCH (15:30)
[2024-05-23] MEDS ORDERED: CARDIZEM CD PO SCH (15:30)
[2024-05-23] MEDS ORDERED: COZAAR PO SCH (15:30)
[2024-05-23] MEDS ORDERED: CORDARONE PO SCH (15:30)
[2024-05-23] MEDS ORDERED: XARELTO PO SCH (15:30)
[2024-05-23] MEDS ORDERED: FLONASE NAS SCH (15:30)
[2024-05-23] MEDS ORDERED: CLARITIN PO SCH (16:00)
[2024-05-23] MEDS: CLARITIN PO SCH (16:34)
[2024-05-23] MEDS: NEURONTIN PO SCH (16:34)
[2024-05-23] MEDS: PROTONIX PO SCH (16:34)
[2024-05-23] MEDS: LASIX TAB PO SCH (16:34)
[2024-05-23] MEDS: CARDIZEM CD PO SCH (16:35)
[2024-05-23] MEDS: CORDARONE PO SCH (16:35)
[2024-05-23] MEDS: COZAAR PO SCH (16:35)
[2024-05-23] MEDS: XARELTO PO SCH (16:35)
[2024-05-23] MEDS: FLONASE NAS SCH (16:35)
[2024-05-23] MEDS: PRAVACHOL PO SCH (16:35)
[2024-05-23] MEDS ORDERED: PROTONIX PO SCH (21:00)
[2024-05-24 05:16] LABS: BASOPHILS % (AUTO) 0.1 % (0.0-3.0); EOSINOPHILS # (AUTO) 0.1 K/ul (0.0-0.7); HEMATOCRIT 36.4 % (37.0-47.0); HEMOGLOBIN 11.3 g/dl (12.0-16.0); IMMATURE GRANULOCYTE % (AUTO) 0.5 % (0.0-5.0); LYMPHOCYTES # (AUTO) 1.6 K/uL (0.60-3.4); LYMPHOCYTES % (AUTO) 20.1 (10.0-50.0); MEAN CORPUSCULAR HEMOGLOBIN 30.7 pg (27.0-31.0); MEAN CORPUSCULAR VOLUME 98.9 fl (81.0-99.0); MONOCYTES # (AUTO) 0.9 K/uL (0.4-2.0); MONOCYTES % (AUTO) 11.8 (0-10); NEUTROPHILS # (AUTO) 5.2 K/ul (2.0-6.9); NEUTROPHILS % (AUTO) 66.5 % (42.2-75.2); PLATELET COUNT 242 10^3/uL (140-440); RDW COEFFICIENT OF VARIATION 14.2 % (11.6-14.8); RED BLOOD COUNT 3.68 10^6/ul (4.20-5.40); WHITE BLOOD COUNT 7.77 K/ul (4.6-10.2)
[2024-05-24 05:28] LABS: ALANINE AMINOTRANSFERASE 20.8 U/L (0-35); ALBUMIN 3.14 g/dL (3.5-5.0); ASPARTATE AMINO TRANSFERASE 25.1 U/L (14-36); BILIRUBIN,TOTAL 0.89 mg/dL (0.2-1.3); BLOOD UREA NITROGEN 15.1 mg/dL (7-17); CALCIUM 8.76 mg/dL (8.4-10.2); CARBON DIOXIDE 22.8 mmol/L (22-30.0); CHLORIDE 108.3 mmol/L (98-107); CREATININE 0.84 mg/dL (0.60-1.30); GLUCOSE 102.4 mg/dL (74-106); POTASSIUM 3.73 mmol/L (3.5-5.1); SODIUM 136.5 mmol/L (134.5-145); TOTAL PROTEIN 5.64 g/dL (6.3-8.2)
[2024-05-24 05:31] LABS: ALKALINE PHOSPHATASE < 20.0 U/L (53-141)
--- NOTE | 2024-05-24 09:23 | DCSUM ---
Admission Date Admission Date: 05/23/24 Discharge Date Discharge Date: 05/24/24 Admission Diagnosis Admission Diagnosis: 1. Intractable N/V secondary to constipation 2. Leukocytosis 3. Afib 4. Hypertension 5. Hyperlipidemia Discharge Diagnosis Discharge Diagnosis: 1. Intractable N/V secondary to constipation - Reseolved 2. Leukocytosis - Resolved 3. Afib - chronic, stable 4. Hypertension - chronic, stable 5. Hyperlipidemia - chronic, stable Hospital Provider Hospital Provider: GER THOMPSON, [facility] [place] Primary Care Physician: PILAR MORAN APRN,[facility] Summary of History and Physical Summary of History and Physical: 78 yo female presented to the ER with complaints of abdominal pain, nausea, and vomiting that started yesterday and has persisted. States she has not had a BM for 4 days. No sick contacts. Denies fever that she knows of, no bloody emesis or stool, or other symptoms. Mild leukocytosis, CT abd pelv negative for acute findings other than constipation. Admitted to med/surg observation Hospital Course Subjective: During stay, patient was given glycerin suppository. Had 2 large bowel movements. Nausea and vomiting resolved. While patient was sleeping, O2 sat was dropping down into upper 80s. 3 step oximetry completed and normal. Does not require oxygen any other time. Discussed with patient sleep study is recommended and to discuss with PCP for ordering. Reported daytime sleepiness and fatigue. No changes to home medications. Discussed to drink more water and increase fiber in diet. Also discussed adding stool softener to medication regimen may be beneficial due to patient taking norco. Appearance: Pleasant, No Apparent Distress and Alert HEENT: MMM and Supple CVS: No Murmur Abdomen: Soft, Non-Tender and No Distention Respiratory: No Dyspnea Vital Signs: Most Recent Vital Signs Temperature 98.3 F 05/24/24 05:13 Temperature Source Temporal Artery Scan 05/24/24 05:13 Temperature Source Oral 05/23/24 08:27 Pulse Rate 67 05/24/24 05:13 Respiratory Rate 20 05/24/24 05:13 Blood Pressure 130/72 05/24/24 05:13 Blood Pressure Mean 91 05/24/24 05:13 Blood Pressure Left Arm 151/58 05/23/24 11:43 Blood Pressure Location Right Arm 05/24/24 05:13 Blood Pressure Position Supine 05/24/24 05:13 O2 Sat by Pulse Oximetry 94 L 05/24/24 05:40 Oxygen Delivery Method Nasal Cannula 05/24/24 08:00 Oxygen Flow Rate 1 05/24/24 05:40 Height 5 ft 7 in 05/23/24 11:43 Weight 121 kg 05/23/24 11:43 Telemetry Type Remote Telemetry 05/24/24 07:00 Telemetry Monitoring Continues 05/24/24 07:00 Telemetry Heart Rate 70 05/24/24 07:00 Telemetry SPO2 93 05/24/24 07:00 EKG MN Interval 0.20 05/24/24 07:00 EKG QRS Interval 0.10 05/24/24 07:00 Telemetry Strip Reading SR 05/24/24 07:00 Imaging: EXAM: CT ABDOMEN AND PELVIS WITH CONTRAST FINDINGS: Lower Thorax: Within normal limits. Liver: No mass. Normal morphology. Biliary: There has been cholecystectomy. Pancreas: No mass or evidence of pancreatitis. No duct dilation. Spleen: No mass. No splenomegaly. Adrenals: No mass. Kidneys/Ureters: No renal mass. No calculus or hydronephrosis. GI Tract: No bowel dilation. No bowel wall thickening. There is a small hiatal hernia. There is constipation. Peritoneal Cavity: No ascites. No free air. Retroperitoneum: No mass or fluid collection. Lymph Nodes: No lymphadenopathy. Vasculature: No aortic aneurysm. Pelvis: Normal pelvic structures. Bladder is normal. Bones/Soft Tissues: Previous kyphoplasty at L4. Visualized abdominal wall soft tissues are unremarkable. IMPRESSION: 1. No acute inflammatory process in the abdomen or pelvis. Lab Results Last 24 Hours: 05/24/24 05/23/24 05/23/24 05:09 12:16 10:40 WBC 7.77 RBC 3.68 L Hgb 11.3 L Hct 36.4 L MCV 98.9 MCH 30.7 MCHC 31.0 L RDW Coeff of Lilli 14.2 Plt Count 242 Immature Gran % (Auto) 0.5 Neut % (Auto) 66.5 Lymph % (Auto) 20.1 [place] % (Auto) 11.8 H Eos % (Auto) 1.0 Baso % (Auto) 0.1 Neut # (Auto) 5.2 Lymph # (Auto) 1.6 [place] # (Auto) 0.9 Eos # (Auto) 0.1 Baso # (Auto) 0.0 Immature Gran # (Auto) 0.0 Sodium 136.5 Potassium 3.73 Chloride 108.3 H Carbon Dioxide 22.8 Anion Gap 9.13 BUN 15.1 Creatinine 0.84 Estimated GFR (MDRD) 66.00 BUN/Creatinine Ratio 17.97 Glucose 102.4 Calcium 8.76 Magnesium Total Bilirubin 0.89 AST 25.1 ALT 20.8 Alkaline Phosphatase < 20.0 L Troponin I Total Protein 5.64 L Albumin 3.14 L Globulin 2.50 Albumin/Globulin Ratio 1.25 Lipase Urine Color Urine Clarity Urine pH Ur Specific [place] Urine Protein Urine Glucose (UA) Urine Ketones Urine Blood Urine Nitrite Urine Bilirubin Urine Urobilinogen Ur Leukocyte Esterase Urine Microscopic RBC Urine Microscopic WBC Ur Squamous Epith Cells Ur Renal Epithelial Cell Calcium Oxalate Crystal Urine Bacteria Influ A Molecular Assay Negative by naat Influ B Molecular Assay Negative by naat SARS CoV-2 RNA Rapid FRANKIE Negative 05/23/24 05/23/24 09:30 09:07 WBC RBC Hgb Hct MCV MCH MCHC RDW Coeff of Lilli Plt Count Immature Gran % (Auto) Neut % (Auto) Lymph % (Auto) [place] % (Auto) Eos % (Auto) Baso % (Auto) Neut # (Auto) Lymph # (Auto) [place] # (Auto) Eos # (Auto) Baso # (Auto) Immature Gran # (Auto) Sodium 138.1 Potassium 4.10 Chloride 107.0 Carbon Dioxide 26.3 Anion Gap 8.90 BUN 14.5 Creatinine 0.99 Estimated GFR (MDRD) 54.00 BUN/Creatinine Ratio 14.64 Glucose 136.6 H Calcium 10.02 Magnesium 1.83 Total Bilirubin 0.61 AST 30.5 ALT 23.5 Alkaline Phosphatase 26.4 L Troponin I < 0.012 Total Protein 6.55 Albumin 4.02 Globulin 2.53 Albumin/Globulin Ratio 1.58 Lipase 37.0 Urine Color Zelda Urine Clarity Clear Urine pH 6.0 Ur Specific [place] 1.020 Urine Protein Negative Urine Glucose (UA) Negative Urine Ketones Negative Urine Blood Negative Urine Nitrite Negative Urine Bilirubin Negative Urine Urobilinogen 1.0 H Ur Leukocyte Esterase 1+ H Urine Microscopic RBC 0-2 Urine Microscopic WBC 5-10 Ur Squamous Epith Cells 0-2 Ur Renal Epithelial Cell 2-5 Calcium Oxalate Crystal 1+ Urine Bacteria Trace Influ A Molecular Assay Influ B Molecular Assay SARS CoV-2 RNA Rapid FRANKIE Discharge Instructions Discharge Planning: Discharge Planning > 40 minutes If patient is discharged with left ventricular systolic dysfunction: NA Discharged with a beta tonio? [] If no, why not? [] Discharged with an clara/arb? [] If no, why not? [] Diagnosis: Constipation Diet: High fiber and fluid Activity: as tolerated Follow-up as PCP next week. A sleep study is recommended for you due to dropping of your oxygen level while sleeping. Please discuss with your PCP. Discharge Medications: Medications at Discharge (Home Meds & RX) amiodarone 200 mg tablet 200 mg PO QDAY #90 tabs 01/17/24 cholecalciferol (vitamin D3) 1,250 mcg (50,000 unit) capsule 1,250 mcg PO QWEEK #5 caps 01/17/24 denosumab 60 mg/mL subcutaneous syringe (Prolia) 60 mg subcut [id number] #1 mL 01/17/24 rivaroxaban 20 mg tablet (Xarelto) See Rx Instructions .Route .COMPLEX #90 tabs 01/17/24 diltiazem HCl 120 mg capsule,extended release 24 hr 120 mg PO QDAY #90 caps 01/25/24 gabapentin 300 mg capsule 300 mg PO TID 30 days #90 caps 02/23/24 hydrocodone 5 mg-acetaminophen 325 mg tablet 1 tab PO Q8H PRN pain #90 tabs 02/29/24 fluticasone propionate 50 mcg/actuation nasal spray,suspension See Rx Instructions .Route .COMPLEX #16 grams 04/03/24 furosemide 20 mg tablet See Rx Instructions .Route .COMPLEX #90 tabs 04/03/24 losartan 100 mg tablet See Rx Instructions .Route .COMPLEX #90 tabs 04/03/24 pravastatin 40 mg tablet See Rx Instructions .Route .COMPLEX #90 tabs 04/03/24 tizanidine 4 mg tablet 4 mg PO BID PRN muscle spasticity #180 tabs 04/17/24 levocetirizine 5 mg tablet 5 mg PO QDAY for allergies #90 tabs 04/22/24 pantoprazole 40 mg tablet,delayed release 40 mg PO 2XD 05/23/24 Discharge Plan Discharge Discharge Orders: Discharge Patient (ONCE); Ordered 05/24/24 Ordered By: LEONEL DAWN Activity Restrictions/Additional Instructions: Diagnosis: Constipation Diet: High fiber and fluid Activity: as tolerated Follow-up as PCP next week. A sleep study is recommended for you due to dropping of your oxygen level while sleeping. Please discuss with your PCP. Instructions: Constipation (GEN), High Fiber Diet (GEN) Patient Disposition: HOME WITH FAMILY CARE Prescriptions: Continued diltiazem HCl 120 mg capsule,extended release 24hr 120 mg PO QDAY Qty: 90 1RF hydrocodone-acetaminophen 5-325 mg tablet 1 tab PO Q8H PRN (Reason: pain) Qty: 90 0RF furosemide 20 mg tablet See Rx Instructions .ROUTE .COMPLEX Qty: 90 0RF Dose Instruction: TAKE 1 TABLET BY MOUTH EVERY MORNING Rx Instructions: TAKE 1 TABLET BY MOUTH EVERY MORNING fluticasone propionate 50 mcg/actuation spray,suspension See Rx Instructions .ROUTE .COMPLEX Qty: 16 2RF Dose Instruction: USE 2 SPRAYS IN EACH NOSTRIL ONCE A DAY FOR ALLERGIES Rx Instructions: USE 2 SPRAYS IN EACH NOSTRIL ONCE A DAY FOR ALLERGIES pravastatin 40 mg tablet See Rx Instructions .ROUTE .COMPLEX Qty: 90 0RF Dose Instruction: TAKE 1 TABLET BY MOUTH ONCE A DAY Rx Instructions: TAKE 1 TABLET BY MOUTH ONCE A DAY losartan 100 mg tablet See Rx Instructions .ROUTE .COMPLEX Qty: 90 0RF Dose Instruction: TAKE 1 TABLET BY MOUTH ONCE A DAY Rx Instructions: TAKE 1 TABLET BY MOUTH ONCE A DAY levocetirizine 5 mg tablet 5 mg PO QDAY Qty: 90 0RF pantoprazole 40 mg tablet,delayed release (DR/EC) 40 mg PO 2XD amiodarone 200 mg tablet 200 mg PO QDAY Qty: 90 0RF Rx Instructions: take tid for 3 weeks then reduce dosing to 200 mg po daily. per cardiology Xarelto 20 mg tablet See Rx Instructions .ROUTE .COMPLEX Qty: 90 1RF Dose Instruction: TAKE ONE TABLET DAILY; MUST ADMINISTER WITH EVENING MEAL Rx Instructions: TAKE ONE TABLET DAILY; MUST ADMINISTER WITH EVENING MEAL Prolia 60 mg/mL syringe 60 mg subcut [id number] Qty: 1 0RF Rx Instructions: per rheumatology cholecalciferol (vitamin D3) 1,250 mcg (50,000 unit) capsule 1,250 mcg PO QWEEK Qty: 5 0RF Rx Instructions: mary davidson aprn, rheumatology tizanidine 4 mg tablet 4 mg PO BID PRN (Reason: muscle spasticity) Qty: 180 1RF Rx Instructions: take 1 po at bid as needed for back spasm or pain gabapentin 300 mg capsule 300 mg PO TID 30 Days Qty: 90 2RF Did you review [place] [employer] for ALL controlled substances?: No Discussed opioids are addictive and Narcan is available by prescription or from pharmacy.: No Condition: Stable Referrals: PILAR MORAN APRN,[facility] [Primary Care Provider] - 05/29/24 10:15 am
[2024-05-24 09:51] VITALS: RESP 16
[2024-05-24 10:42] VITALS: BP 129/74; PULSE 72; TEMP 97.5
== END 2024-05-24 10:45 | disposition home or self-care (01) ==
LOC: ED 08:21 → MEDSURG B 08:21
PROVIDERS: ADMIT Hospitalist; ATTEND Nurse Practitioner Family